=== PATIENT | female | born 1995 | race Caucasian/White ===

== ENCOUNTER → 2022-03-02 | Outpatient (CLI) | payer OTHER | LOC: RAD 16:38 | DX: M25.551 Pain in right hip (principal) | CPT/HCPCS: 73502 ==

== ENCOUNTER 2022-06-27 02:10 | Emergency (ER) | payer OTHER ==
[2022-06-27 04:54] LABS: HEMOGLOBIN 11.6 gm/dl (12.3-15.3); RED BLOOD COUNT 3.99 M/UL (4.00-5.10); WHITE BLOOD COUNT 8.2 K/UL (4.5-11.0)
[2022-06-27 05:26] LABS: BUN/CREATININE RATIO 12 (0-10)
== END 2022-06-27 06:15 | disposition home or self-care (01) ==
LOC: ER1 02:10
PROVIDERS: Student in an Organized Health Care Education/Training Program
DX: O99.891 Other specified diseases and conditions complicating pregnancy (principal); M25.511 Pain in right shoulder; O99.331 Smoking (tobacco) complicating pregnancy, first trimester; F17.290 Nicotine dependence, other tobacco product, uncomplicated; Z3A.01 Less than 8 weeks gestation of pregnancy
CPT/HCPCS: 80053; 82550; 82553; 84484; 85025; 93005; 99283

== ENCOUNTER 2022-07-06 20:42 | Emergency (ER) | payer OTHER ==
[2022-07-06 21:11] LABS: HEMOGLOBIN 11.5 gm/dl (12.3-15.3); RED BLOOD COUNT 3.91 M/UL (4.00-5.10); WHITE BLOOD COUNT 8.2 K/UL (4.5-11.0)
[2022-07-06 21:48] LABS: BUN/CREATININE RATIO 18 (0-10)
[2022-07-07] MEDS ORDERED: CEPHALEXIN500 MG PO (00:22)
== END 2022-07-07 00:45 | disposition home or self-care (01) ==
LOC: ER1 20:42
PROVIDERS: Physician Assistant Medical
DX: O23.41 Unspecified infection of urinary tract in pregnancy, first trimester (principal); N39.0 Urinary tract infection, site not specified; O10.911 Unspecified pre-existing hypertension complicating pregnancy, first trimester; O99.331 Smoking (tobacco) complicating pregnancy, first trimester; F17.290 Nicotine dependence, other tobacco product, uncomplicated; Z3A.10 10 weeks gestation of pregnancy
CPT/HCPCS: 80053; 81001; 84702; 85025; 87086; 99284